=== PATIENT | female | born 1960 | race Caucasian/White ===

== ENCOUNTER → 2019-08-02 | Outpatient (CLI) | payer OTHER | LOC: SJCVC 10:41 | DX: I44.0 Atrioventricular block, first degree (principal); I10 Essential (primary) hypertension; E78.5 Hyperlipidemia, unspecified; E11.9 Type 2 diabetes mellitus without complications; G60.9 Hereditary and idiopathic neuropathy, unspecified; G47.33 Obstructive sleep apnea (adult) (pediatric); K21.9 Gastro-esophageal reflux disease without esophagitis; M19.90 Unspecified osteoarthritis, unspecified site; E03.9 Hypothyroidism, unspecified; Z90.49 Acquired absence of other specified parts of digestive tract; Z99.89 Dependence on other enabling machines and devices; Z90.710 Acquired absence of both cervix and uterus; Z79.899 Other long term (current) drug therapy; Z86.711 Personal history of pulmonary embolism ==

== ENCOUNTER → 2019-08-15 | Outpatient (CLI) | payer OTHER | LOC: SJCVCIMAG 07:51 | DX: I44.0 Atrioventricular block, first degree (principal); I11.9 Hypertensive heart disease without heart failure; R94.31 Abnormal electrocardiogram [ECG] [EKG]; E78.5 Hyperlipidemia, unspecified; G47.33 Obstructive sleep apnea (adult) (pediatric); E11.9 Type 2 diabetes mellitus without complications; Z79.899 Other long term (current) drug therapy; Z86.711 Personal history of pulmonary embolism ==

== ENCOUNTER → 2019-08-16 | Outpatient (CLI) | payer OTHER | LOC: SJCVC 08:11 | DX: I10 Essential (primary) hypertension (principal) ==

== ENCOUNTER → 2019-08-23 | Outpatient (CLI) | payer OTHER ==
[~2019-08-23] VITALS: Ht 167.6 cm; Wt 132.9 kg
[~2019-08-23] MED LIST: ATENOLOL 100MG100 MG PO; CHILDREN'S ZYRT10 M1 PO; FAMOTIDINE 20 M20 MG PO; GABAPENTIN600 M1 PO; LEXAPRO20 MG PO; LIPITOR40 MG PO; LISINOPRIL40 MG PO; MELATONIN10 M3 PO; MELOXICAM15 MG PO; METFORMIN HCL500 M3 PO; NORTRIPTYLINE H25 M3 PO; NORVASC5 M1 PO; TRAMADOL HCL50 MG PO; VITAMIN D21250 MC1 PO; WELLBUTRIN XL150 MG PO; [UNRECOGNIZED DRUG - OTHER] PO
[2019-08-23 07:17] VITALS: BP 125/74
--- NOTE | 2019-08-23 08:10 | EKG ---
[facility] [place] [address] ELECTROCARDIOGRAM REPORT Name: SANJAY ZAVALA Room #: REG [facility]#: [id number] Admission: 08/23/19 Attend Phys: Kev Baron MD, Discharge: Date of : 62 Report #: [id number] THIS REPORT FOR: cc: Merlin Pantoja Louis D. DO Lundgren, Craig H. MD [facility] THIS REPORT FOR: //name// [facility] Test Date: 2019-08-23 Test Time: 07:45:17 Pat Name: SANJAY ZAVALA Department: Room: Gender: F Stunt Person: ANIYA : 1960 Requested By: Kev Baron Order Number: [id number] MD: Kev Baron Measurements Intervals [place] Rate: 76 P: 43 MT: 231 QRS: 5 QRSD: 107 T: 15 QT: 418 QTc: 471 Interpretive Statements Sinus rhythm Prolonged MT interval Probable left ventricular hypertrophy Borderline T abnormalities, anterior leads No previous ECG available for comparison Electronically Signed On 08-23-2019 8:08:27 CDT by Kev Baron [email or web address] <ELECTRONICALLY SIGNED> By: Kev Baron MD, FAC 08/23/19 0808 0745 0745 Kev Baron MD, [facility] /EPI
--- NOTE | 2019-08-23 09:33 | CATHLAB ---
[facility] [place] [address] INVASIVE PROCEDURE REPORT Name: SANJAY ZAVALA Room #: REG NATACHA Shae.#: [id number] Admission: 08/23/19 Attend Phys: Kev Baron MD, Discharge: Date of : 62 Report #: [id number] THIS REPORT FOR: cc: Merlin Pantoja Louis D. DO Lundgren, Craig H. MD [facility] ~ APPROVED REPORT Study performed: 08/23/2019 07:41:41 Patient Details Patient Status: Out-Patient Room #: The patient is a 59 year-old female Event Personnel Kev Baron Lead Java J2Ee Developer, Aung Hardin RN RN, Arabella Narvaez, Candice Daniel RTShaunna Monitor Procedures Performed Art Access - R femoral artery* Left Heart Cath w/or w/o Coronaries [id number] [facility] [id number] Initial Mod Sed Same Phys/QHP Gr5y [id number] 30845 Mod Sed Same Phys/QHP Ea [id number] Hemostasis w/ Mynx Indication Chest pain Procedure Narrative The patient was brought electively to the Cardiac Catheterization Laboratory and was prepped and draped in a sterile manner. The Right Groin^ was infiltrated with 1% Lidocaine subcutaneous anesthesia. A PINNACLE 6FR Sheath #[id number] sheath was inserted into the RFA^. Coronary angiography was performed using coronary diagnostic catheters. The right coronary system was accessed and visualized with a JR4 catheter. The left coronary system was accessed and visualized with a JL 4.5 catheter. The left ventricle was accessed and visualized with a PIGTAIL catheter. Left ventricular/Aortic Valve gradient assessed via catheter pullback. Left ventriculogram was performed in 30 degree projection. Closure device was deployed with a 6 Fr MYNXGRIP 6/7F #[id number]. The patient tolerated the procedure well and there were no complications associated with the procedure. There was no hematoma. Intraoperative Conscious Sedation Sedation start time: 808 Case end Time: 846 [facility] [address] [place] [address] INVASIVE PROCEDURE REPORT Name: SANJAY ZAVALA PRUDENCE [id number] Admission: 08/23/19 Attend Phys: Kev Baron, Discharge: Date of : 62 Report #: [id number] Fentanyl 50 mcg Versed --2 mg Fluoro Time: 5.70 minutes Dose: DAP 27471.00 cGycm2 1851 mGy Contrast Type and Amount: Omnipaque 150 ml Coronary Angiography The patient's coronary anatomy is right dominant. Diagnostic Cath Left Main Normal left main LAD Normal left anterior descending Diagonal 1 Small first diagonal branch, normal Diagonal 2 Larger second diagonal branch, angiographically normal Circumflex Large, nondominant circumflex comprised of a single bifurcating marginal branch OM1 Normal bifurcating OM1 Right Coronary Normal, dominant right coronary R PDA Normal posterior descending branch RPLV Large, bifurcating and angiographically normal posterolateral branch Left Ventriculography The left ventricle is normal in size with normal contractility. The left ventricular ejection fraction is estimated to be 60-65%. Left ventricular wall motion abnormalities are not present. There is no mitral insufficiency. Hemodynamics The aortic pressure is 124/67 mmHg with a mean of 71 mmHg. The left ventricular pressure is 125/68 mmHg with a mean of mmHg. The left ventricular end diastolic pressure is 78 mmHg. Conclusion 1. Normal global and regional left ventricular systolic function. Ejection fraction 65% 2. Normal coronary vasculature. Right coronary dominant circulation Recommendations Aggressive Medical Therapy Weight Loss Reduction Program <ELECTRONICALLY SIGNED> By: Kev Baron MD, FACC 08/23/19931 1 1 Kev Baron MD, FACC /INF
== END | disposition home or self-care (01) ==
LOC: CATH 06:43
DX: R07.9 Chest pain, unspecified (principal); I10 Essential (primary) hypertension; E11.9 Type 2 diabetes mellitus without complications; E78.5 Hyperlipidemia, unspecified; G47.30 Sleep apnea, unspecified; K21.9 Gastro-esophageal reflux disease without esophagitis; E66.09 Other obesity due to excess calories; Z98.890 Other specified postprocedural states; Z79.899 Other long term (current) drug therapy; Z85.038 Personal history of other malignant neoplasm of large intestine; Z90.49 Acquired absence of other specified parts of digestive tract; Z90.710 Acquired absence of both cervix and uterus; Z98.0 Intestinal bypass and anastomosis status; Z85.41 Personal history of malignant neoplasm of cervix uteri; Z85.850 Personal history of malignant neoplasm of thyroid; Z79.4 Long term (current) use of insulin